=== PATIENT | male | born 1955 | race Caucasian/White ===

== ENCOUNTER 2023-08-18 19:51 | Emergency (ER) | payer MEDICARE, MEDICAID ==
[~2023-08-18] VITALS: Ht 167.6 cm; Wt 75.0 kg
[2023-08-18 19:57] VITALS: O2SAT 98
[2023-08-18] MEDS ORDERED: IBUP-2029 MT (21:08)
[2023-08-18] MEDS ORDERED: METH-653 MT (21:08)
[2023-08-18 21:16] VITALS: TEMP 97.9
[2023-08-18] MEDS: IBUPROFEN 600MG TABLET PO ONE (21:16)
[2023-08-18] MEDS: ACETAMINOPHEN 500MG TABLET PO ONE (21:16)
[2023-08-18 21:58] VITALS: BP 141/78; PULSE 88; RESP 14
== END 2023-08-18 22:00 | disposition home or self-care (01) ==
LOC: ER 19:51
DX: M25.511 Pain in right shoulder (principal); M25.512 Pain in left shoulder; I10 Essential (primary) hypertension; V49.49XA Driver injured in collision with other motor vehicles in traffic accident, initial encounter; Y93.89 Activity, other specified; Y92.89 Other specified places as the place of occurrence of the external cause; Y99.8 Other external cause status
CPT/HCPCS: 99283